=== PATIENT | male | born 1975 | race Two or more races ===

== ENCOUNTER 2019-01-24 17:01 | Emergency (ER) | payer SELFPAY ==
[~2019-01-24] VITALS: Ht 175.3 cm; Wt 118.2 kg
[2019-01-24] MEDS ORDERED: GENTAMICIN SULFATE 0.3% OPHTHALMIC SOLUTION 5 ML OD ONE (17:45)
[2019-01-24 18:00] VITALS: BP 131/52
== END 2019-01-24 18:13 | disposition home or self-care (01) ==
LOC: EMS 17:02
DX: H00.12 Chalazion right lower eyelid (principal)